=== PATIENT | male | born 1965 | race Caucasian/White ===

== ENCOUNTER 2021-03-29 15:58 | Outpatient (CLI) | payer SELFPAY ==
[2021-03-29 16:33] LABS: Anion Gap 15.4 mmol/L (3-11); CO2 18.6 mmol/L (21.0-32.0); Chloride 93 mmol/L (98-107); Glucose 160 mg/dL (74-106); Potassium 5.4 mmol/L (3.5-5.1); Sodium 127 mmol/L (136-145)
[2021-03-29 16:40] LABS: BUN 211 mg/dL (7-18); CREATININE 16.4 mg/dL (0.70-1.30)
== END 2021-03-29 15:59 | disposition home or self-care (01) ==
LOC: LBO 15:58
PROVIDERS: Visit Provider Internal Medicine Nephrology
DX: N17.9 Acute kidney failure, unspecified (principal)
CPT/HCPCS: 36415; 80048